=== PATIENT | female | born 1995 | race Caucasian/White ===

== ENCOUNTER 2025-02-20 07:59 | Outpatient (REF) | payer OTHER, SELFPAY ==
--- NOTE | ~2025-02-20 | US_ITS ---
EXAMINATION(S): 1. MM DIAGNOSTIC DIGITAL BREAST TOMOSYNTHESIS, BILATERAL 2. TARGETED ULTRASOUND OF THE RIGHT BREAST CLINICAL INFORMATION: -Right breast lump in the lower outer quadrant. -Personal history of left breast surgical biopsy of two benign tumors removed in 2013. COMPARISON: Prior images from 2013 are not retrievable (this facility does not have any prior imaging on record). This will be considered a new baseline study. TECHNIQUE: Digital breast tomosynthesis is performed in along with computer-aided detection (CAD). Synthesized 2D images are generated from the tomosynthesis. FINDINGS: BREAST COMPOSITION: There are scattered areas of fibroglandular density. RIGHT BREAST: No significant masses, suspicious calcifications or other abnormalities are seen. In particular, no suspicious abnormalities adjacent to the skin BB marker placed at the location of the palpable concern per patient, in the lateral breast. Targeted ultrasound of the right breast was performed at the location of the palpable concern as indicated by the patient. The survey shows a 0.5 x 0.2 x 0.4 cm hypoechoic solid mass at 8 o'clock position 9 cm from the nipple. No abnormal vascularity demonstrated with color Doppler evaluation. LEFT BREAST: History of previous surgical excision. No significant masses, suspicious calcifications or other abnormalities are seen. US/US Breast LT Limited Mamm Only IMPRESSION: RIGHT BREAST: 0.5 x 0.2 x 0.4 cm solid mass at 8 o'clock position 9 cm from the nipple. Probably benign. A 6-month follow-up ultrasound is recommended. LEFT BREAST: Benign, no mammographic evidence of malignancy. ASSESSMENT: BI-RADS: Category 3: Probably benign RECOMMENDATION: 6 Month F/U Results were provided to the patient at time of visit by the technologist. This patient's information was entered into a reminder system with a target due date for their next mammogram. Electronically signed by: Chinmay Sanders MD 02/20/2025 10:02 AM [facility] [place]
--- OUTSIDE RECORDS SUMMARY | 2025-02-20 08:06 | XMS_ITS | Clinical Summary ---
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 Not on mahendra e 07/31/2024 Are you concerned about learning? Not on file 07/31/2024 No 07/31/2024 No 07/31/2024 Digital Access Answer Date Recorded No 07/31/2024 No 07/31/2024 Reliable internet access at home? Not on file 07/31/2024 Device with a working camera? Not on file Comments Unknown Sex and Gender Information Value Date Recorded Sex Assigned at Not on file Legal Sex Female 9:33 AM EDT Gender Identity Not on file Sexual Orientation Not on file Last Filed Vital Signs Vital Sign Reading Time Taken Comments Blood Pressure 130/83 07/31/2024 12:05 PM EDT Pulse 52 07/31/2024 12:05 PM EDT Temperature 36.4 C (97.5 F) 07/31/2024 12:05 PM EDT Respiratory Rate 15 07/31/2024 12:05 PM EDT Oxygen Saturation 100% 07/31/2024 12:05 PM EDT Inhaled Oxygen Concentration - - Weight 65.8 kg (145 lb) 07/31/2024 12:05 PM EDT Height 170.2 cm (5' 7 ) 07/31/2024 12:05 PM EDT Body Mass Index 22.71 07/31/2024 12:05 PM EDT Plan of Treatment Health Maintenance Due Date Last Done Comments Adult Td,Tdap Booster 1994 DEPRESSION SCREENING 2006 SMOKING Hx and SMOKELESS TOB ACCO SCREENING 2007 HEPATITIS C SCREENING 2012 HIV ONE-TIME SCREENING (18-6 5 YEARS) 2012 PAP SMEAR 2015 INFLUENZA VACCINE (#1) 2024 COVID-19 VACCINE ( - 2024-2 6 season) 2024 HEPATITIS A VACCINES Aged Out No long er eligible based on patient's age to complete this topic HIB VACCINES Aged Out No longer eligi ble based on patient's age to complete this topic MENINGOCOCCAL VACCINES (ACWY) Aged Out No longer eligible based on patient's age to complete this topic MENINGOCOCCAL VACCINES (B) Aged Out N o longer eligible based on patient's age to complete this topic PNEUMOCOCCAL VACCINES (0-49 years) Aged Out No longer eligible based on patient's age to complete this topic Medical Devices Not on file [facility] [employer] [facility] [facility] [employer] [facility] [employer] [facility] [employer] [facility] [employer]ICE [employer] Care Teams Bowling Alley Operator Relationship Specialty Start Date End Date Pcp, Unknown PCP - General 07/31/24 Additional Source Comments The information contained in this document represents components of the legal health record. It is not the complete legal health record.[facility]
== END 2025-02-20 08:00 | disposition home or self-care (01) ==
LOC: HO.MAMMO 07:59
PROVIDERS: PCP Emergency Medicine; Visit Provider Emergency Medicine
DX: N63.13 Unspecified lump in the right breast, lower outer quadrant (principal); Z85.3 Personal history of malignant neoplasm of breast
CPT/HCPCS: 76642; 77062; 77066

== ENCOUNTER → 2025-02-20 08:00 | Outpatient (BNV) | payer OTHER, SELFPAY | PROVIDERS: PCP Emergency Medicine; Visit Provider Radiology Body Imaging | DX: N63.13 Unspecified lump in the right breast, lower outer quadrant (principal) | CPT/HCPCS: 76642; 77062; 77066 ==